=== PATIENT | female | born 1965 | race Caucasian/White ===

== ENCOUNTER → 2022-10-27 16:57 | Outpatient (CLI) | payer BC, SELFPAY ==
[2022-10-27 16:43] LABS: Basophils % 0.4 % (0.1-2.0); Eosinophils # 0.3 K/mm3 (0.0-0.4); Eosinophils % 4.6 % (0.1-12.0); Hematocrit 46.1 % (37.0-47.0); Hemoglobin 15.4 g/dL (12.2-16.2); Lymphocytes # 1.7 K/mm3 (0.7-4.5); Lymphocytes % 26.8 % (10-50); Mean Corpuscular HGB Conc 33.4 g/dL (31.8-35.4); Mean Corpuscular Hemoglobin 30.3 pg (27.0-31.2); Mean Corpuscular Volume 90.7 fl (81-99); Mean Platelet Volume 8.6 fl (7.4-10.4); Monocytes # 0.4 K/mm3 (0.1-1.0); Monocytes % 5.7 % (1.7-9.3); Neutrophils % 62.5 % (37.0-80.0); Platelet Count 248 K/mm3 (142-424); Red Blood Count 5.08 M/mm3 (4.20-5.40); Red Cell Distribution Width 12.9 % (11.5-17.5); White Blood Count 6.4 K/mm3 (4.8-10.8)
[2022-10-27 18:39] LABS: 25-OH Vitamin D, Total 32.9 ng/mL (30-100)
[2022-10-27 19:16] LABS: Alanine Aminotransferase 34 U/L (12-78); Albumin Level 5.1 g/dl (3.5-5.0); Albumin/Globulin Ratio 1.4 (1.1-1.8); Alkaline Phosphatase 80 U/L (38-126); Anion Gap 16.7 mEq/L (5-15); Aspartate Amino Transferase 38 U/L (14-36); Bilirubin,Total 0.6 mg/dl (0.2-1.3); Blood Urea Nitrogen 12 mg/dl (7-17); Calcium 9.9 mg/dl (8.4-10.2); Carbon Dioxide 28 mmol/L (22.0-30.0); Chloride 99 mmol/L (98-107); Cholesterol 287 mg/dl (140-200); Estimated Glomerular Filt Rate 73 ml/min (>60); GFR (African American) 89 ML/MIN (>60); Globulin 3.7 g/dL (1.3-3.2); Glucose 84 mg/dl (74-100); HDL Cholesterol 96 mg/dl (40-60); Potassium 4.7 mmoL/L (3.5-5.1); Sodium 139 mmol/L (136-145); Total Protein,Serum 8.8 g/dl (6.3-8.2); Triglycerides 69 mg/dl (30-150); VLDL Cholesterol 14 mg/dL (0-40)
[2022-10-27 19:27] LABS: Direct LDL Cholesterol 154.26 mg/dL (100-129)
[2022-10-27 19:33] LABS: Free T4 (Free Thyroxine) 1.23 ng/dl (0.78-2.19)
[2022-10-27 19:47] LABS: Thyroid Stimulating Hormone 1.34 uIU/mL (0.465-4.68)
[2022-10-27 21:32] LABS: Hemoglobin A1C 5.6 % (4.0-6.0)
[2022-10-29 10:44] LABS: HCV Ab Non Reactive (Non Reactive); HIV Screen 4th Generation wRfx Non Reactive (Non Reactive)
== END ==
PROVIDERS: PCP Internal Medicine; Visit Provider Internal Medicine
DX: Z00.00 Encounter for general adult medical examination without abnormal findings (principal); Z11.59 Encounter for screening for other viral diseases; Z11.4 Encounter for screening for human immunodeficiency virus [HIV]; Z79.899 Other long term (current) drug therapy
CPT/HCPCS: 80053; 80061; 82306; 83036; 84439; 84443; 85025; 86703; G0432

== ENCOUNTER → 2022-11-17 10:41 | Outpatient (CLI) | payer BC, SELFPAY ==
--- NOTE | 2022-11-17 10:41 | MM_ITS ---
PROCEDURE INFORMATION: Exam: MG Bilateral Screening 3D Mammography Exam date and time: 11/17/2022 10:44 AM Age: 57 years old Clinical indication: Screening mammogram TECHNIQUE: Imaging protocol: Bilateral Screening tomosynthesis and 2D mammography including computer-aided detection (CAD) when performed. COMPARISON: No relevant prior studies available. FINDINGS: MAMMOGRAPHY: Breast composition: The breast is heterogeneously dense, which may obscure small masses. Mass: None. Architectural distortion: No new or suspicious architectural distortion. Calcifications: No new or suspicious calcifications are present Asymmetric density: No new or suspicious asymmetric density is present Skin thickening: None. Axillary adenopathy: None. IMPRESSION: No mammographic evidence of malignancy. Recommend annual screening mammography unless otherwise clinically indicated. ASSESSMENT: BI-RADS category 1: Negative
== END ==
PROVIDERS: PCP Internal Medicine; Visit Provider Internal Medicine
DX: Z12.39 Encounter for other screening for malignant neoplasm of breast (principal)
CPT/HCPCS: 77063; 77067

== ENCOUNTER 2023-01-11 10:55 | Day surgery (SDC) | payer BC, SELFPAY ==
[2023-01-11 11:08] VITALS: BP 181/110; PULSE 93; RESP 18; TEMP 36.3; O2SAT 97; BMI 25.7
[2023-01-11 11:42] VITALS: O2SAT 100
[2023-01-11 12:04] VITALS: BP 128/73; PULSE 67; RESP 14; TEMP 36.3; O2SAT 93
--- NOTE | 2023-01-11 12:04 | HMH.SCOPE ---
Procedure: Date: 01/11/23 Patient Date of :: 1965 Procedure Performed:: Colonoscopy Indications:: Screening colonoscopy Performing Provider:: Bryce Abreu MD Referring Provider:: William Long MD Sedation:: See RN records Procedure:: After placing the patient in the left lateral decubitus position, the colonoscopy was gently inserted into the rectum and under direct visualization advanced to the cecum which was identified by transillumination in the right lower quadrant, identification of the ileocecal valve, appendiceal orifice, and cecal strap. Color, texture, mucosa, and anatomy of the colon were carefully examined with the scope. Findings:: Anal canal: normal Rectum: normal Sigmoid colon: normal without polyps or inflammatory changes Descending colon: Pedunculated polyp 6-7 mm in size. Removed with hot snare polypectomy. Flat polyp with mucus cap 5 mm in size. Removed with cold snare polypectomy Splenic flexure: normal Transverse colon: normal without polyps or inflammatory changes Hepatic flexure: normal Ascending colon: normal without polyps or inflammatory changes Cecum: normal Terminal ileum: not visualized Impression: Polyps of descending colon x 2 Recommendations:: Await pathology results Repeat colonosocopy in 5 years Complications:: none Estimated blood obtained (mL): 0 Colonoscopy Component Colonoscopy Component Was a colonoscopy performed during today's procedure?: Yes Recommended follow up colonoscopy of at least 10 years?: Yes
--- NOTE | 2023-01-11 12:07 | EXP.ANES.CKL ---
[facility] Disclaimer: The information contained in this section may have been updated after the patient was seen, as this information can be updated by other users. Medical History History of gastroesophageal reflux (GERD) Hypertension Surgical History No significant past surgical history Family History Mother Hypertension Father Hypotension Social History Smoking Status: Former smoker years smoked: 30 alcohol intake: current substance use type: denies use current occupational status: employed Travel in the last 8 weeks: None [facility] Anesthesia Checklist Patient Identification Patient Identification: Verbal (Name & ) Structural Data Admitted From: Home Planned Operative Procedure/s: colonoscopy Consent for Planned Operative Procedure(s) Verified: Yes Airway Assessment Mallampati Score:: Class II C-Spine Mobility Assessed: Yes TMJ Mobility Assessed: Yes Dentition: Good Dentition Neurological Assessment Level of Consciousness: Awake, Alert and Appropriate Anesthesia Plan Anesthesia Risk discussed: Yes Anesthesia Plan: Verified ASA Class: I Anesthesia Type: MAC
[2023-01-11 12:14] VITALS: BP 123/73; PULSE 67; RESP 17; O2SAT 93
[2023-01-11 12:24] VITALS: BP 122/63; PULSE 63; RESP 18; O2SAT 98
[2023-01-11 12:34] VITALS: BP 120/64; PULSE 63; RESP 18; O2SAT 97
--- NOTE | 2023-01-11 12:44 | SUR.PHASEII ---
Pt complained of abdominal cramping and soreness. Dr. Abreu is in the room with the patient at this time. Physician states that she can go home. Pt does report decrease in cramping after moving to wheel chair and expelling gas.
== END 2023-01-11 12:50 | disposition home or self-care (01) ==
LOC: OUTP 10:56
PROVIDERS: PCP Internal Medicine; Visit Provider Internal Medicine
PROC: 0DJD8ZZ Inspection of Lower Intestinal Tract, Via Natural or Artificial Opening Endoscopic (ICD-10-PCS; CPT 45378; principal; 2023-01-11 11:30)
DX: Z12.11 Encounter for screening for malignant neoplasm of colon (principal); D12.4 Benign neoplasm of descending colon
CPT/HCPCS: 45385